=== PATIENT | male | born 1930 | race Caucasian/White ===

== ENCOUNTER 2017-04-23 15:53 | Observation (INO) | payer MEDICARE, OTHER ==
--- NOTE | 2017-04-23 16:15 | CT ---
CT OF THE BRAIN WITHOUT CONTRAST: INDICATION: Left-sided facial droop that has since resolved. COMPARISON: None. FINDINGS: There is moderate generalized cerebral atrophy. There is mild to moderate chronic small-vessel white matter ischemic change. There is no definite acute infarct, hemorrhage, or hydrocephalus present. Septum pellucidum and third ventricle are midline. The skull and extracranial soft tissues are unrem arkable. IMPRESSION: No acute intracranial abnormality. POS: [place]
[2017-04-23 16:23] LABS: #Eosinphils 0.2 thou/uL (0.0-0.7); #Lymphocytes 1.6 thou/uL (1.20-3.40); #Monocytes 0.8 thou/uL (0.11-0.59); #Neutrophils 4.9 thou/uL (1.40-6.50); %Basophils 0.7 % (0.0-1.0); %Eosinophils 2.2 % (0.0-10.0); %Lymphocytes 20.8 % (21.0-51.0); %Monocytes 10.7 % (0.0-10.0); %Neutrophils 65.6 % (42.0-75.0); Hemoglobin 14.4 g/dL (14.0-18.0); Mean Corpuscular HGB CONC 33.1 g/dL (32.0-36.0); Mean Corpuscular Hemoglobin 31.6 pg (27.0-31.0); Mean Corpuscular Volume 95.6 fl (80.0-94.0); Mean Platelet Volume 8.4 fL (7.4-10.4); Platelet Count 197 thou/uL (130-400); RBC Distribution Width 12.3 % (11.5-14.5); Red Blood Cell (RBC) Count 4.54 mill/uL (4.70-6.10); White Blood Cell (WBC) Count 7.4 thou/uL (4.8-10.8)
[2017-04-23 16:30] LABS: INR-International Normal Ratio 1.7; PTT 33.6 SEC (22.9-36.1); Prothrombin Time 20.3 SEC (12.0-14.7)
[2017-04-23 16:44] LABS: ALT (SGPT) 16 U/L (8-55); AST (SGOT) 16 U/L (5-34); Albumin 4.1 g/dL (3.4-4.8); Alkaline Phosphatase 75 U/L (40-150); Anion Gap 10 mmol/L (10-20); BUN (Urea Nitrogen) 34 mg/dL (8.4-25.7); Bilirubin, Total 0.5 mg/dL (0.2-1.2); Calc. Creatinine Clearance 0 mL/min (70-130); Calcium 9.3 mg/dL (7.8-10.44); Carbon Dioxide 27 mmol/L (23-31); Chloride 104 mmol/L (98-107); Estimated GFR-MDRD 43; Glucose 170 mg/dL (83-110); Protein, Total 7.1 g/dL (5.8-8.1); Sodium 137 mmol/L (136-145)
[2017-04-23 16:49] LABS: CKMB 6.3 ng/mL (0-6.6); Troponin I 0.019 ng/mL (< 0.028)
[2017-04-23] MEDS ORDERED: hydrALAZINE 20 MG/ML VIAL SLOW IVP PRN (18:09)
[2017-04-23] MEDS ORDERED: Labetalol HCl 100 MG/20 ML VIAL SLOW IVP PRN (18:09)
[2017-04-23] MEDS ORDERED: Enalaprilat Dihydrate 1.25 MG/ML VIAL SLOW IVP PRN (18:09)
[2017-04-23] MEDS ORDERED: Bisacodyl 5 MG TAB PO PRN (18:10)
[2017-04-23] MEDS ORDERED: Acetaminophen 650 MG Suppository PR PRN (18:10)
[2017-04-23] MEDS ORDERED: Mag-Al 1200 mg/1200 mg/30 ML UDCUP PO PRN (18:10)
[2017-04-23] MEDS ORDERED: Acetaminophen 325 MG TAB PO PRN (18:10)
[2017-04-23] MEDS ORDERED: Dextrose 50% Abboject 50 ML SYRINGE SLOW IVP PRN (18:10)
[2017-04-23] MEDS ORDERED: HumaLOG 300 UNITS/3 ML VIAL SC PRN (18:10)
[2017-04-23] MEDS ORDERED: Dextrose 5% in Water 1,000 ML IV PRN (18:10)
--- NOTE | 2017-04-23 19:01 | HP ---
PRIMARY CARE PROVIDER: Delano Mendez. CHIEF COMPLAINT: Slurred speech. HISTORY OF PRESENT ILLNESS: Mr. Dubose is a pleasant 86-year-old gentleman who was seen at [facility] after he was transferred here by air ambulation. He was in a cattle pen at 14:42 hours today. At that time, he was found to be slumped. He also had slurred speech. He was initially reported to have had a facial droop as well, although the family now denies that. He also was reportedly shaky in his left upper and lower extremities and had to hold onto something to keep himself steady. The episode lasted approximately a minute or two at its worst. Slowly he started improving. By the time EMS arrived, he still had symptoms, but they were improving. He was air lifted here. Here, his symptoms are completely resolved. REVIEW OF SYSTEMS: The following complete review of systems was negative, unless otherwise mentioned in the HPI or below: Constitutional: Weight loss or gain, ability to conduct usual activities. Skin : Rash, itching. Eyes: Double vision, pain. ENT/Mouth: Nose bleeding, neck stiffness, pain, tenderness. Cardiovascular: Palpitations, dyspnea on exertion , orthopnea. Respiratory: Shortness of breath, wheezing, cough, hemoptysis, fever or night sweats. Gastrointestinal: Poor appetite, abdominal pain, heartburn, nausea, vomiting, constipation, or diarrhea. Genitourinary: Urgency , frequency, dysuria, nocturia. Musculoskeletal: Pain, swelling. Neurologic/ Psychiatric: Anxiety, depression. Allergy/Immunologic: Skin rash, bleeding tendency. PAST MEDICAL HISTORY: Significant for atrial fibrillation, coronary artery disease, congestive heart failure, diabetes mellitus, hypothyroidism, dyslipidemia, hypertension, and renal insufficiency. PAST SURGICAL HISTORY: Significant for pacemaker, coronary artery bypass graft , aortic valve replacement with bioprosthetic valve, left eye cataract surgery, left eye removal and left knee replacement. SOCIAL HISTORY: The patient denies tobacco use, alcohol use or recreational drug use. FAMILY HISTORY: His mother had a stroke. ALLERGIES: ACTOS, CODEINE, METFORMIN, NIFEDIPINE, NONSTEROIDAL ANTI- INFLAMMATORY AGENTS and VALIUM. CURRENT MEDICATIONS: Include amlodipine 10 mg daily, aspirin 81 mg daily, finasteride 5 mg daily, Lasix 40 mg daily, glipizide 5 mg 2 times a day, levothyroxine 50 mcg daily, lisinopril 30 mg daily, metoprolol succinate 12.5 mg 2 times a day, pravastatin 40 mg daily, and warfarin 5 mg daily except on Wednesdays when he takes 7.5 mg. CODE STATUS: I discussed his code status. He is FULL CODE. PHYSICAL EXAMINATION: GENERAL: Mr. Dubose is awake and alert, not in acute distress. VITAL SIGNS: Blood pressure is 153/85, pulse is 80. He is breathing at rate of 17 and saturating 98% on room air. He is afebrile. 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 No scleral icterus or conjunctival pallor in the right side. ENT: Moist mucosal membranes, no oropharyngeal erythema or exudates. NECK: Supple, nontender, normal range of movement. Trachea is midline. RESPIRATORY: Accessory muscles of breathing are not active. Chest wall movements are symmetric bilaterally. Lungs are clear to auscultation without wheeze, rhonchi or crepitations. CARDIOVASCULAR: S1 and S2 are heard, regular. Peripheral pulses palpable. No carotid bruit, no pericardial rub. ABDOMEN: Soft, nontender, bowel sounds are heard, no hepatomegaly, no splenomegaly. NEUROLOGIC: He is missing left eye. With this limitation, cranial nerves II- XII appear to be intact. Power is 5/5 in all 4 extremities. No focal motor or sensory deficits. Deep tendon reflexes are 2+. Plantar reflexes downgoing bilaterally. SKIN: He has an ablation over the left dyson. MUSCULOSKELETAL: Power is 5/5 in all 4 extremities. LYMPHATIC: No cervical lymphadenopathy. PSYCHIATRIC: Normal mood, normal affect, patient is oriented to person, place, and time. LABORATORY DATA: Mr. Dubose's labs and investigations were reviewed. His electrocardiogram shows electronic dual chamber paced rhythm. Noncontrast CT scan of the brain does not show any acute abnormalities. Laboratory investigation show a normal white count, normal hemoglobin, normal platelet count, INR 1.7, normal electrolytes, elevated blood urea nitrogen of 34, elevated creatinine 1.56 and an unremarkable liver profile. Troponin I is normal. ASSESSMENT AND PLAN: Mr. Dubose is a pleasant 86-year-old gentleman who was seen at [facility] on 04/23/2017. His problem list includes: 1. Transient ischemic attack: His presentation is consistent with transient ischemic attack. We will admit him to the hospital for further workup including carotid Dopplers and 2D echocardiogram. We will consult Neurology service. Unable to obtain MRI of the brain due to pacemaker. I will continue him on aspirin. 2. Chronic kidney disease: Baseline creatinine is not known. We will recheck creatinine level. 3. Atrial fibrillation: Continue warfarin. INR is subtherapeutic. We will request pharmacy to manage warfarin. 4. Diabetes mellitus: Start Accu-Cheks, insulin sliding scale. 5. Coronary artery disease: Appears to be stable. 6. Hypertension: Monitor vital signs, titrate antihypertensives as needed. 7. Hypothyroidism: Continue levothyroxine. 8. Dyslipidemia: Continue statins. Many thanks for allowing me to participate in your patient's care. Please feel free to contact me with any questions or concerns. LEVEL OF RISK: Moderate LEVEL OF COMPLEXITY: Moderate MTDD
[2017-04-23] MEDS ORDERED: Acetaminophen 500 MG TAB ONE (19:31)
[2017-04-23 20:41] VITALS: BMI 29.4
[2017-04-23] MEDS ORDERED: WARFARIN PO PRN (21:00)
[2017-04-24] MEDS ORDERED: Warfarin Sodium 2.5 MG TAB PO SCH ×3 (01:15→21:00)
[2017-04-24 05:27] LABS: #Eosinphils 0.3 thou/uL (0.0-0.7); #Lymphocytes 1.5 thou/uL (1.20-3.40); #Monocytes 0.7 thou/uL (0.11-0.59); %Basophils 0.8 % (0.0-1.0); %Eosinophils 4.8 % (0.0-10.0); %Lymphocytes 27.8 % (21.0-51.0); %Monocytes 12.5 % (0.0-10.0); %Neutrophils 54.2 % (42.0-75.0); Hemoglobin 13.1 g/dL (14.0-18.0); Mean Corpuscular HGB CONC 33.3 g/dL (32.0-36.0); Mean Platelet Volume 8.4 fL (7.4-10.4); Platelet Count 162 thou/uL (130-400); RBC Distribution Width 12.3 % (11.5-14.5); White Blood Cell (WBC) Count 5.5 thou/uL (4.8-10.8)
[2017-04-24 05:33] LABS: INR-International Normal Ratio 1.7; Prothrombin Time 20.8 SEC (12.0-14.7)
[2017-04-24 05:57] LABS: Anion Gap 7 mmol/L (10-20); BUN (Urea Nitrogen) 33 mg/dL (8.4-25.7); Calc. Creatinine Clearance 59 mL/min (70-130); Calcium 8.7 mg/dL (7.8-10.44); Carbon Dioxide 27 mmol/L (23-31); Cardiac Risk 3.6 (Less than 4.5); Chloride 108 mmol/L (98-107); Cholesterol 120 mg/dl (< 200 Desired); Estimated GFR-MDRD 55; Glucose 125 mg/dL (83-110); HDL Cholesterol 33 mg/dL (>60 Neg Risk); LDL Cholesterol, Calculated 74 mg/dL; Potassium 3.9 mmol/L (3.5-5.1); Sodium 138 mmol/L (136-145); Triglycerides 65 mg/dL (Less than 150)
[2017-04-24] MEDS: Aspirin 81 mg Enteric Coated Tablet PO SCH (08:40)
[2017-04-24] MEDS ORDERED: Enoxaparin Sodium 40 MG/0.4 ML SYRINGE SC SCH (09:00)
--- NOTE | 2017-04-24 11:40 | ULT ---
BILATERAL CAROTID DUPLEX ULTRASOUND INCLUDING COLOR AND SPECTRAL DOPPLER IMAGING: DATE: 04/24/17 HISTORY: 86-year-old male with TIA. FINDINGS: There is visual plaque noted in the distal CCAs and proximal ICAs bilaterally. PSV Right ICA: 84 cm/sec EDV: 13 cm/sec ICA/CCA Ratio: 0.8 PSV Left ICA: 167 cm/sec EDV: 35 cm/sec ICA/CCA Ratio: 1.7 Right vertebral flow is antegrade. Left vertebral flow is not visualized. IMPRESSION: Moderate, 50-69%, stenosis of the left proximal ICA. POS: OFF
--- NOTE | 2017-04-24 14:24 | PDOC.PN ---
- Subjective Encounter Start Date: 04/24/17 Encounter Start Time: 08:00 Pt seen for followup re: TIA. No complaints today. - Objective Resuscitation Status: Resuscitation Status FULL:Full Resuscitation MAR Reviewed: Yes Vital Signs & Weight: Vital Signs (12 hours) Temp Pulse Resp BP Pulse Ox 04/24/17 11:17 97.7 F 80 20 146/70 H 96 04/24/17 08:00 97.6 F 80 18 138/67 97 04/24/17 04:00 97.6 F 80 18 132/71 98 Weight Weight 211 lb 1.6 oz I&O: 04/23/17 04/24/17 04/25/17 06:59 06:59 06:59 Intake Total 480 Balance 480 Result Diagrams: 04/24/17 05:07 04/24/17 05:07 Additional Labs: Accuchecks 04/24/17 04/24/17 04/23/17 10:46 05:24 22:03 POC Glucose 177 H 121 H 189 H EKG Reviewed by me: Yes (Tele: electronic paced rhythm) Phys Exam - Physical Examination Constitutional: NAD HEENT: moist MMs Missing left eye Neck: supple Respiratory: clear to auscultation bilateral Cardiovascular: RRR Gastrointestinal: soft Neurological: moves all 4 limbs Psychiatric: normal affect Skin: no rash Dx/Plan (1) TIA (transient ischemic attack) Status: Acute (2) Carotid stenosis Code(s): I65.29 - OCCLUSION AND STENOSIS OF UNSPECIFIED CAROTID ARTERY Status : Acute (3) HTN (hypertension) Code(s): I10 - ESSENTIAL (PRIMARY) HYPERTENSION Status: Chronic (4) DM2 (diabetes mellitus, type 2) Status: Chronic (5) Afib Code(s): I48.91 - UNSPECIFIED ATRIAL FIBRILLATION Status: Chronic (6) CAD (coronary artery disease) Code(s): I25.10 - ATHSCL HEART DISEASE OF [place] CORONARY ARTERY W/O ANG PCTRS Status: Chronic (7) Dyslipidemia Code(s): E78.5 - HYPERLIPIDEMIA, UNSPECIFIED Status: Chronic (8) RICHARD (acute kidney injury) Code(s): N17.9 - ACUTE KIDNEY FAILURE, UNSPECIFIED Status: Resolved - Plan plan discussed w/ family, PT/OT, out of bed/ambulate * . Continue aspirin, warfarin. Consult CV surgery re: L moderate carotid stenosis. Await 2D echo. Monior vital signs, titrate antihypertensives as needed. Continue accuchecks, insulin sliding scale. Await neurology consult. Review of Systems - Review of Systems Respiratory: negative: Cough, Dry, Shortness of Breath, Hemoptysis, SOB with Excertion, Pleuritic Pain, Sputum, Wheezing Cardiovascular: negative: chest pain, palpitations, orthopnea, paroxysmal nocturnal dyspnea, edema, light headedness Neurological: negative: Weakness, Numbness, Incoordination, Change in Speech, Confusion, Seizures - Medications/Allergies Allergies/Adverse Reactions: Allergies Allergy/AdvReac Type Severity Reaction Status Date / Time codeine Allergy Verified 04/23/17 23:28 diazepam [From Valium] Allergy Verified 04/23/17 23:28 metformin Allergy Verified 04/23/17 23:28 nifedipine Allergy Verified 04/23/17 23:28 NSAIDS (Non-Steroidal Allergy Verified 04/23/17 23:28 Anti-Inflamma pioglitazone [From Actos] Allergy Verified 04/23/17 23:28 Medications: Current Medications Acetaminophen (Tylenol) 650 mg PO Q4H PRN PRN Reason: Headache/Fever or Pain Acetaminophen (Tylenol) 650 mg [place] Q4H PRN PRN Reason: Headache/Fever or Pain Al Hydroxide/Mg Hydroxide (Maalox) 30 ml PO Q6H PRN PRN Reason: Heartburn or Indigestion Aspirin (Ecotrin) 81 mg PO DAILY [facility] Last Admin: 04/24/17 08:40 Dose: 81 mg Bisacodyl (Dulcolax) 10 mg PO DAILYPRN PRN PRN Reason: Constipation Dextrose/Water (Dextrose 50%) 25 gm SLOW IVP PRN PRN PRN Reason: Hypoglycemia Enalaprilat (Vasotec) 1.25 mg SLOW IVP Q6H PRN PRN Reason: BP > 220/110 Glucagon (Glucagon) 1 mg IM PRN PRN PRN Reason: Hypoglycemia Hydralazine HCl (Apresoline) 10 mg SLOW IVP Q4H PRN PRN Reason: BP > 220/110 Dextrose/Water (D5w) 1,000 mls @ 0 mls/hr IV .Q0M PRN; As Directed PRN Reason: Hypoglycemia Insulin Human Lispro (Humalog) 0 units SC .MILD SLIDING SCALE PRN PRN Reason: Mild Correctional Scale Last Admin: 04/24/17 11:56 Dose: 2 unit Labetalol HCl (Normodyne) 20 mg SLOW IVP Q1H PRN PRN Reason: BP > 220/110 Miscellaneous Medication (Pharmacy To Dose) 1 each PO PRN PRN PRN Reason: PHARMACY TO DOSE Warfarin Sodium (Coumadin) 2.5 mg PO 1700 JOHNNA
[2017-04-24] MEDS ORDERED: Warfarin Sodium 5 MG TAB PO SCH (17:00)
[2017-04-24] MEDS ORDERED: Acetaminophen 500 MG TAB PO PRN (17:51)
--- NOTE | 2017-04-24 18:01 | CON ---
DATE OF CONSULTATION: 04/24/2017 CONSULTING PHYSICIAN: Hospitalist Service. IMPRESSION: 1. Transient ischemic attack with transient left-sided weakness and dysarthria. 2. Patient has failed maximum medical therapy. 3. Diabetes. 4. Atrial fibrillation. 5. Coronary artery disease. 6. Congestive heart failure. 7. Hyperlipidemia. PLAN: 1. Continue aspirin and Coumadin. 2. Continue statin. 3. Patient can be discharged home. Mr. Dubose is an 86-year-old gentleman, who has multiple medical problems. 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 His son noted that his speech was slurred. He called 911 for assistance, within about 10 mi nutes, he reports his speech had returned to normal. He seemed to regain his strength on the left si de. The patient is a poor historian and was not even aware of any of the symptoms. The symptoms wer e not associated with headache, nausea, vomiting, vertigo, chest pain, or shortness of breath. He wa s brought in for evaluation. A CT of the brain showed evidence of some chronic small vessel ischemic changes. Carotid Doppler showed some left-sided moderate stenosis in the 50% to 69% range. His lab s were all unremarkable. Vital signs have been stable and he has been afebrile since admission. He denies any past history of similar symptoms. PAST MEDICAL HISTORY: As listed above. ALLERGIES: NONSTEROIDALS, NIFEDIPINE, VALIUM, CODEINE, METFORMIN. SOCIAL HISTORY: No tobacco or alcohol use. He is and lives independently. FAMILY HISTORY: Noncontributory. MEDICATIONS: List was reviewed. REVIEW OF SYSTEMS: Otherwise, negative for chest pain, palpitations, shortness of breath, headache. Positive for joint pain. PHYSICAL EXAMINATION: GENERAL: A well-nourished elderly man in no distress. VITAL SIGNS: Stable. He is afebrile. HEENT: Conjunctivae are clear. Pupils are poorly reactive. Oropharynx clear. NECK: Supple, no lymphadenopathy. EXTREMITIES: Some degenerative joint changes are present, but no cyanosis. NEUROLOGIC: Alert and cooperative. Speech is fluent and clear. Cranial nerves were intact. Motor exam did not show any focal weakness. Rapid alternating movements were equal. Sensation was intact to light touch. Gait is independent. No abnormal movements were seen. SUMMARY: Elderly gentleman with some transient left-sided weakness and dysarthria suggesting a small vessel TIA. I would continue his current medical management.
--- NOTE | 2017-04-24 18:51 | CON ---
DATE OF CONSULTATION: 04/24/2017 HISTORY OF PRESENT ILLNESS: Mr. Dubose is an 86-year-old gentleman, who was brought by [place]. He had been working cows all day, toward the end of the day he said that he lean a gainst the fence and his family said his speech was garbled. This caused them to call for air evacua tion. He was brought to the emergency department, at which time his speech difficulties had resolved . He had no motor findings in the emergency department. Since he has been here, he has had a CT sca n of the brain, which is negative. He has had a carotid ultrasound performed, which shows on the rig ht a peak systolic velocity of 184 cm per second with a ratio 0.8. This is consistent with less than 50% stenosis. On the left, the peak systolic velocity is 167 with a ratio of 1.7 consistent with a 50% to 69% stenosis. I have been asked to see him for further evaluation. Currently, he is resting comfortably in bed without complaint. PAST MEDICAL HISTORY: 1. Aortic stenosis/coronary artery disease, status post AVR and CABG. 2. Chronic atrial fibrillation -- on Coumadin therapy with his most recent INR of 2.1. His INR at a dmission is 1.7. 3. Chronic renal insufficiency with a baseline creatinine of 1.2. 4. History of congestive heart failure. 5. History of diabetes mellitus. 6. History of hypothyroidism. 7. History of dyslipidemia. 8. Hypertension. PAST SURGICAL HISTORY: 1. AVR and CABG. 2. Pacemaker placement. 3. Left eye cataract surgery and left eye removal. 4. Left knee replacement. SOCIAL HISTORY: He does not use tobacco or alcohol. He is and accompanied by and son. ALLERGIES: 1. ACTOS. 2. CODEINE. 3. METFORMIN. 4. NIFEDIPINE. 5. NSAIDS. 6. VALIUM. CURRENT MEDICATIONS: Noted. REVIEW OF SYSTEMS: Ten point review of systems is performed and is negative except as above. PHYSICAL EXAMINATION: GENERAL: This is a well-developed, well-nourished man, resting comfortably in bed. VITAL SIGNS: Temperature 98.0, pulse is 80 and regular, blood pressure 142/67. NECK: Supple. He has no carotid bruit. LUNGS: Chest is clear bilaterally. HEART: Rhythm is regular without murmur. ABDOMEN: Soft and nontender. EXTREMITIES: No cyanosis, clubbing or edema. NEUROLOGIC: Motor exam is grossly intact. He has no sensory deficits. ASSESSMENT AND PLAN: Apparent acute neurologic changes, which resolved prior to his presenting to [facility]. He is currently asymptomatic. He has a moderate grade left carotid stenosis, I have ord ered a CT angio. His current creatinine is 1.26, which should be adequate for CTA. Due to his atria l fibrillation history, he has had an echocardiogram performed -- the patient is currently V-paced an d regular. There are no signs of atrial fibrillation on his current EKG. I will check his CTA first thing in the morning and make further recommendations -- with atrial fibrillation, he should keep hi s INR around 2.5 -- his current INR is 1.7 and would recommend an increase in his Coumadin dose.
[2017-04-24] MEDS ORDERED: Triamcinolone 0.1% Cream 30 GM TUBE TOP SCH (21:00)
[2017-04-24] MEDS ORDERED: Pravastatin Sodium 40 MG TAB PO SCH (21:00)
[2017-04-24] MEDS: Triamcinolone 0.1% Cream 15 GM TUBE TOP SCH (21:12)
[2017-04-24] MEDS: Metoprolol Tartrate 25 MG TAB PO SCH (21:13)
[2017-04-25 05:32] LABS: INR-International Normal Ratio 1.7
[2017-04-25] MEDS ORDERED: Levothyroxine Sodium 50 MCG TAB PO SCH (06:00)
[2017-04-25] MEDS ORDERED: glipiZIDE 5 MG TAB PO SCH (07:30)
[2017-04-25] MEDS ORDERED: Furosemide 40 MG TAB PO SCH (09:00)
[2017-04-25] MEDS ORDERED: Finasteride 5 MG TAB PO SCH (09:00)
[2017-04-25] MEDS ORDERED: Amlodipine 10 MG TAB PO SCH (09:00)
[2017-04-25] MEDS ORDERED: Lisinopril 20 MG TAB PO SCH (09:00)
--- NOTE | 2017-04-25 10:15 | CT ---
CTA NECK WITH 3D VOLUME RENDERING: CLINICAL HISTORY: Moderate right carotid stenosis. History of stroke. FINDINGS: There is atherosclerotic vascular calcification involving the aortic arch as well as atherosclerosis of the origins of the great vessels that emanate from the aortic arch without high-grade focal stenos is at the origins. The bilateral subclavian arteries are patent where visualized. There is multifoc al atherosclerotic vascular disease of the bilateral common carotid arteries. There is calcific plaq ue as well as noncalcified plaque involving the carotid bulbs bilaterally. This results in mild sten osis of the proximal right ICA. Within the proximal aspect of the cervical left ICA, there is a foca l ulceration of plaque at its posterolateral luminal aspect. Marked tortuosity of the proximal aspec t of the cervical left ICA also present. On the basis of NASCET, there is a moderate degree of left proximal ICA stenosis approximately 60%. There is a dominant right vertebral artery with a diminutiv e caliber throughout the left vertebral artery. Calcification involves the origin of the dominant ri ght vertebral artery with mild narrowing of the lumen. There is calcification at the distal nondomin ant left ICA as well as noncalcified plaque producing short segment moderate to severe stenoses just proximal to the junction with the right vertebral artery at the vertebrobasilar junction. Patchy non specific ground-glass opacities and interstitial prominence is seen at the upper lung zones. There i s nonspecific adenopathy of the mediastinum. Punctate hypodensities are seen within the thyroid glan d. These are too small to further characterize. IMPRESSION: 1. Moderate focal stenosis of the proximal aspect of the cervical left internal carotid artery, appr oximately 60% by NASCET criteria. 2. Moderate to severe short-segment stenosis at the distal nondominant left vertebral artery. POS: [place]
[2017-04-25] MEDS: Aspirin 81 mg Enteric Coated Tablet PO SCH (10:31)
[2017-04-25] MEDS: Metoprolol Tartrate 25 MG TAB PO SCH (10:32)
[2017-04-25] MEDS: Triamcinolone 0.1% Cream 15 GM TUBE TOP SCH (10:42)
[2017-04-25 12:16] VITALS: BP 160/73; TEMP 98.1
[2017-04-25] MEDS ORDERED: Warfarin Sodium 5 MG TAB PO SCH (17:00)
[2017-04-25] MEDS ORDERED: Warfarin Sodium 7.5 MG TAB PO SCH (17:00)
--- NOTE | 2017-04-25 21:45 | DIS ---
DATE OF ADMISSION: 04/23/2017 DATE OF DISCHARGE: 04/25/2017 DISCHARGE DIAGNOSES: 1. Transient ischemic attack, resolved. 2. Carotid artery disease, medically managed. 3. History of atrial fibrillation with current ventricular pacing. 4. Coronary artery disease, chronic and stable. 5. Diabetes mellitus type 2. 6. Hypertension, stable. 7. Chronic kidney disease, stage 3. CONSULTATIONS: 1. Dr. Pablo with Neurology Service. 2. Dr. Sigifredo Ayon with Vascular Surgery Service. PERTINENT LABORATORY AND X-RAY FINDINGS: Creatinine ranged between 1.26-1.56. Estimated GFR ranged between 43-55. LFT is within normal limits. Total cholesterol 120, triglycerides 65, HDL 33, LDL 74 . CBC showed a hemoglobin ranging between 13.1-14.4. PT 20.0, INR 1.7 on 04/25/2017. CT of the brain without contrast dated 04/23/2017 showed no acute intracranial process. 2D transthor acic echocardiogram dated 04/24/2017 showed ejection fraction of 55%-60%. Diastolic dysfunction note d. Moderate tricuspid valve regurgitation. Carotid Doppler study dated 04/24/2017 showed moderate s tenosis of the left proximal internal carotid artery 50%-69%. CT angiogram of the head and neck date d 04/25/2017 showed moderate focal stenosis of the proximal aspect of the cervical left internal moser tid artery 60%. [id number] short-segment stenosis of the distal nondominant left vertebral a rtery. HOSPITAL COURSE: The patient was admitted to the stroke unit after initially presenting with dysarth phong and left-sided weakness concerning for acute CVA. The patient underwent extensive evaluation inc luding neuro imaging showing no acute intracranial process. The patient was placed on aspirin 81 mg daily in conjunction with Coumadin and evaluated by the Neurology Service. Due to the patient's maxi mal medical therapy, no specific recommendations for adjustment to current medication regimen were ma de by Neurology Service. The patient was evaluated for potential carotid artery disease as etiology of presentation; however, review by the Vascular Surgery Service recommended medical management and n ot surgical intervention. The patient also underwent interrogation of his pacemaker device showing n ormal functioning device. Overall, the patient's symptoms resolved with conservative management and the patient is ready for discharge on 04/25/2017. DISCHARGE MEDICATIONS: 1. Tylenol 500 mg p.o. q.6 hours p.r.n. 2. Norvasc 10 mg 1 tab p.o. daily. 3. Enteric-coated aspirin 81 mg 1 tab p.o. daily. 4. Finasteride 5 mg p.o. q.48 hours. 5. Lasix 40 mg p.o. daily. 6. Glipizide 5 mg p.o. b.i.d. 7. Levothyroxine 50 mcg 1 tab p.o. daily. 8. Lisinopril 30 mg 1 tablet p.o. daily. 9. Metoprolol tartrate 12.5 mg p.o. b.i.d. 10. Pravachol 40 mg p.o. daily. 11. Triamcinolone 1 application topically b.i.d. 12. Coumadin 5 mg p.o. daily until 04/26/2017 and then 2.5 mg p.o. at bedtime. FOLLOWUP: The patient may follow up with his primary care provider, Dr. Karthik Eddy at the [facility] within 7 days of discharge. The patient will follow up with Dr. Sigifredo Ayon with Vascular Surgery Service. CONDITION ON DISCHARGE: Stable. ACTIVITY: Ad andi. SPECIAL INSTRUCTIONS: Recommend PT/INR within 48 hours of discharge. Goal INR of 2.5-3. DIET: ADA and Coumadin prudent. CODE STATUS: FULL. DISPOSITION: Home, 04/25/2017.
== END 2017-04-25 15:56 | disposition home or self-care (01) ==
LOC: ERS 15:53 → 2SE 17:45
PROVIDERS: ADMIT Internal Medicine; ATTEND Internal Medicine
DX: G45.9 Transient cerebral ischemic attack, unspecified (principal); I69.922 Dysarthria following unspecified cerebrovascular disease; I69.992 Facial weakness following unspecified cerebrovascular disease; R53.1 Weakness; I25.10 Atherosclerotic heart disease of native coronary artery without angina pectoris; I13.0 Hypertensive heart and chronic kidney disease with heart failure and stage 1 through stage 4 chronic kidney disease, or unspecified chronic kidney disease; E11.22 Type 2 diabetes mellitus with diabetic chronic kidney disease; N18.3 Chronic kidney disease, stage 3 (moderate); I50.9 Heart failure, unspecified; E78.5 Hyperlipidemia, unspecified; E03.9 Hypothyroidism, unspecified; I48.2 Chronic atrial fibrillation; Z95.0 Presence of cardiac pacemaker; Z95.1 Presence of aortocoronary bypass graft; Z96.652 Presence of left artificial knee joint; Z95.2 Presence of prosthetic heart valve; Z90.01 Acquired absence of eye; Z88.5 Allergy status to narcotic agent; Z88.6 Allergy status to analgesic agent; Z88.8 Allergy status to other drugs, medicaments and biological substances; Z79.82 Long term (current) use of aspirin; Z79.84 Long term (current) use of oral hypoglycemic drugs; Z79.899 Other long term (current) drug therapy
CPT/HCPCS: 70450; 70498; 80048; 80053; 80061; 82553; 82962 ×3; 84484; 85025 ×2; 85610 ×3; 85730; 93005; 93306; 93880; 94760; 96372; 97139; 99291; G0378; 36415; 36416; J1650